=== PATIENT | male | born 1980 | race Caucasian/White ===

== ENCOUNTER 2017-04-09 12:17 | Emergency (ER) | payer OTHER ==
[~2017-04-09] VITALS: Ht 177.8 cm; Wt 86.2 kg
[2017-04-09] MEDS ORDERED: LORazepam 2 MG/ML, 1ML IVPush ONE (13:30)
[2017-04-09] MEDS ORDERED: SODIUM CHLORIDE 0.9% 1,000ML IVBOLUS ONE (13:30)
[2017-04-09] MEDS ORDERED: LORazepam 2 MG/ML, 1ML ONE (13:30)
[2017-04-09 13:46] LABS: HEMATOCRIT 45.7 % (39.2-51.8); WHITE BLOOD COUNT 5.8 x10^3/uL (3.4-10)
[2017-04-09 14:00] LABS: BLOOD UREA NITROGEN 14 mg/dL (7-18)
[2017-04-09 14:08] LABS: IS PT STATUS REG ER OR PRE ER? YES
[2017-04-09 15:06] VITALS: BP 125/78
== END 2017-04-09 15:08 | disposition home or self-care (01) ==
LOC: ED 14:50
DX: I10 Essential (primary) hypertension (principal)
CPT/HCPCS: 36415; 80048; 82040; 83735; 84443; 84484; 85025; 93005; 96361; 96374; 99285; J2060; J7030

== ENCOUNTER 2018-10-12 17:15 | Emergency (ER) | payer SELFPAY ==
[~2018-10-12] VITALS: Ht 177.8 cm; Wt 95.8 kg
[2018-10-12 17:19] VITALS: BP 154/106
[2018-10-12] MEDS ORDERED: FLUORESCEIN OPHTHALMIC 1 MG STRIP ONE (17:39)
[2018-10-12] MEDS ORDERED: ERYTHROMYCIN OPHTH 0.5%, 1GM LEFTEYE ONE (18:00)
[2018-10-12] MEDS ORDERED: FLUORESCEIN/BENOXINATE 5 ML DROPS OP ONE (18:00)
== END 2018-10-12 18:04 | disposition home or self-care (01) ==
LOC: ED 17:58
DX: S05.02XA Injury of conjunctiva and corneal abrasion without foreign body, left eye, initial encounter (principal); I10 Essential (primary) hypertension; W45.8XXA Other foreign body or object entering through skin, initial encounter; Y93.89 Activity, other specified; Y92.69 Other specified industrial and construction area as the place of occurrence of the external cause; Y99.0 Civilian activity done for income or pay
CPT/HCPCS: 99282